=== PATIENT | male | born 1980 | race Two or more races ===

== ENCOUNTER 2023-07-02 00:47 | Emergency (ER) | payer BC ==
[~2023-07-02] VITALS: Ht 180.3 cm; Wt 108.9 kg
[2023-07-02] MEDS ORDERED: MEPERIDINE HCL/PF 50 MG/ML VIAL IM STA (01:50)
[2023-07-02] MEDS ORDERED: TAMSULOSIN HCL 0.4 MG CAP PO STA (01:50)
[2023-07-02] MEDS ORDERED: PROMETHAZINE HCL 50 MG/ML AMPUL IM STA (01:50)
[2023-07-02] MEDS ORDERED: SODIUM CHLORIDE 0.45 % 1,000 ML IV ONE (02:00)
[2023-07-02 02:17] LABS: HEMATOCRIT 40.5 % (39.0-48.0); HEMOGLOBIN 13.8 g/dL (13-16.00); MEAN CELL VOLUME 88.9 fL (80.0-100.00); MEAN CORPUSCULAR HEMOGLOBIN 30.3 pg (27.00-32.0); MEAN CORPUSCULAR HGB CONC 34.1 g/dl (32.0-36.0); PLATELET COUNT 270 K/uL (150-450); RED BLOOD COUNT 4.56 M/uL (4.00-6.00); RED CELL DISTRIBUTION WIDTH 13.1 % (11.5-14.5)
[2023-07-02 02:41] LABS: PH,URINE 5.5 (5.0-8.0); URINE APPEARANCE Clear; URINE BILIRRUBIN Negative (NEGATIVE); URINE BLOOD Large; URINE COLOR Dark Yellow; URINE GLUCOSE Negative (NEGATIVE); URINE LEUKOCYTE Negative; URINE NITRATE Negative; URINE PROTEIN Trace (NEGATIVE)
[2023-07-02 02:44] LABS: URINE BACTERIA 22.6 uL (0.0-1933); URINE EPITHELIAL CELLS 5.2 uL (0.0-38.8); URINE RBC 580.8 uL (0.0-20.8); URINE WBC 5.8 uL (0.0-23.2)
[2023-07-02 02:45] LABS: CALCIUM 9.1 mg/dL (8.5-10.1); CREATININE SERUM 1.14 mg/dL (0.70-1.30); POTASSIUM 3.85 mEq/L (3.5-5.1)
[2023-07-02 02:49] LABS: GFR 70.79
[2023-07-02] MEDS ORDERED: DOLOGESIC-DF 51 EACH PO (07:36)
[2023-07-02] MEDS ORDERED: TAMS0.4C PO (07:37)
== END 2023-07-02 07:47 ==
LOC: ER 00:48
PROVIDERS: General Practice
DX: N23 Unspecified renal colic (principal); Z88.6 Allergy status to analgesic agent